=== PATIENT | male | born 1975 | race Caucasian/White ===

== ENCOUNTER 2021-09-08 08:33 | Outpatient (CLI) | payer OTHER, SELFPAY ==
--- NOTE | 2021-09-08 08:15 | DI.RAD_ITS ---
Exam(s) XR KNEE LT 3V AP,LAT,LETICIA EXAM: XR KNEE LT 3V AP,LAT,LETICIA CLINICAL HISTORY: left knee pain. TECHNIQUE: 2D digital imaging was performed of the left knee. Three images were obtained. AP, late ral and PA tunnel views were obtained. COMPARISON: No exams were available for comparison FINDINGS: BONES: No acute fracture is present. No bony destructive lesion is seen. Mild spurring of the well tester ior patella. JOINTS: The knee is normally aligned. No joint effusion is seen. There is a 3 mm osseous density in t he lateral femoral tibial joint space suspicious for loose body. Chondrocalcinosis is present in the femoral tibial joint. SOFT TISSUE: There is a round metallic density within the soft tissues of the anterior medial knee at the level of the distal metaphysis. This may represent a foreign body. Please correlate with the p santi's clinical history. IMPRESSION: 1. Mild degenerative changes of the left knee. 2. Possible loose body in the lateral femoral tibial joint space. 3. Foreign body seen in the anterior medial soft tissues. DATA REPOSITORY: RADIATION DOSE DELIVERED:
== END 2021-09-08 08:34 | disposition home or self-care (01) ==
LOC: DIORS 08:34
PROVIDERS: PCP Internal Medicine; Referring Provider Internal Medicine; Visit Provider Student in an Organized Health Care Education/Training Program
DX: M25.562 Pain in left knee (principal); M79.5 Residual foreign body in soft tissue; M23.42 Loose body in knee, left knee
CPT/HCPCS: 73562

== ENCOUNTER 2021-09-25 00:45 | Outpatient (CLI) | payer OTHER, SELFPAY ==
--- NOTE | 2021-09-25 06:30 | DI.MRI_ITS ---
Exam(s) MR LOWER JOINT LT WO EXAM: MR LOWER JOINT LT WO CLINICAL HISTORY: ? MENISCAL TEAR,internal derangement lt knee, lt knee pain, m25.562,m23.92. TECHNIQUE: Multiplanar multisequence MRI was performed. COMPARISON: CR KNEE_4 OR MORE VIEWS -LEFT from 06/24/2012 MR MR EXTREMITY KNEE WO CONTRAST from 07/10/2012 CR XR KNEE LT 3V AP,LAT,LETICIA from 09/08/2021 FINDINGS: BONES: There is no fracture or contusion pattern. JOINTS: Articular cartilage is unremarkable. No effusion is present. Patellofemoral joint obscured by artifact. TENDONS: Extensor mechanism: Unremarkable. Medial retinaculum: Unremarkable. Lateral retinaculum: Unremarkable. Popliteus: Unremarkable. MUSCLES: Unremarkable. MENISCI: The medial meniscus is unremarkable. The posterior horn and body of the lateral meniscus are not seen in no loose usual location. Appear s to be a portion of the meniscus flipped medially near the anterior cruciate ligament. There is abn ormal linear and amorphous signal in the anterior horn. SOFT TISSUES: Artifact related to BB in the soft tissues medial to the left medial femoral condyle. Small Witt's cyst. This appears decreased in size when compared the previous exam. LIGAMENTS: Anterior Cruciate: Unremarkable. Posterior Cruciate: Unremarkable. Medial Collateral:Unremarkable. Lateral Collateral: Unremarkable. OTHER: Significant artifact related to BB in the medial soft tissues. IMPRESSION: Lateral meniscal tear with the majority of the body and posterior horn flipped medially. DATA REPOSITORY:
== END 2021-09-25 01:05 ==
PROVIDERS: PCP Internal Medicine; Visit Provider Student in an Organized Health Care Education/Training Program
DX: M25.562 Pain in left knee (principal); M23.8X2 Other internal derangements of left knee; M71.22 Synovial cyst of popliteal space [Baker], left knee; S83.282A Other tear of lateral meniscus, current injury, left knee, initial encounter; X58.XXXA Exposure to other specified factors, initial encounter
CPT/HCPCS: 73721

== ENCOUNTER 2021-10-02 04:04 | Outpatient (CLI) | payer OTHER, SELFPAY ==
[2021-10-02 12:49] LABS: Source Nasal/Nares
[2021-10-02 16:04] LABS: COVID-19 PCR Negative (Negative)
== END 2021-10-02 04:05 | disposition home or self-care (01) ==
LOC: LBO 04:04
PROVIDERS: PCP Internal Medicine; Visit Provider Student in an Organized Health Care Education/Training Program
DX: Z20.822 Contact with and (suspected) exposure to COVID-19 (principal); Z01.818 Encounter for other preprocedural examination
CPT/HCPCS: 87635

== ENCOUNTER 2021-10-03 13:20 | Day surgery (SDC) | payer OTHER, SELFPAY ==
[2021-10-03] VITALS (7 sets, daily range): BP systolic 105–164; BP diastolic 57–110; PULSE 58–67; RESP 10–16; TEMP 36.2–36.4; O2SAT 97–99; BMI 30.9
--- NOTE | 2021-10-03 13:21 | W.ANESPRE ---
General Info Date of Service Date Performed: 10/03/21 Height: 5 ft 10 in Weight: 97.976 kg Body Mass Index (BMI): 30.9 Surgical Procedure: Operation Date: 10/03/21 16:10 Proposed Procedure Side Surgeon p Knee Arthroscopy w/Partial Lateral Menisectomy Left Marky Ann MD Meds Allergies and Home Medications Allergies Allergy/AdvReac Type Severity Reaction Status Date / Time Penicillins Allergy Unknown Verified 10/03/21 13:49 Home Medication Medication Instructions Recorded lisinopril 30 mg tablet 30 mg PO DAILY 07/18/21 Current Visit Medications: Current Medications Generic Name Dose Route Start Last Admin Trade Name Freq PRN Reason Stop Dose Admin Acetaminophen 1,000 mg 10/03/21 06:00 Acetaminophen 500 Mg Tab PO 10/03/21 16:00 PREOP DANIEL Celecoxib 400 mg 10/03/21 06:00 Celecoxib 200 Mg Cap PO 10/03/21 16:00 PREOP DANIEL Ringer's Solution 1,000 mls @ 80 mls/hr 10/03/21 06:00 IV 10/26/21 23:59 INFUSION DANIEL Cefazolin Sodium/Dextrose 2 gm in 50 mls @ 100 mls/hr 10/03/21 06:00 Ancef Duplex IVPB 10/03/21 23:59 PREOP DANIEL IV Miscellaneous Supplies 1 each 10/03/21 06:00 Iv Access IV 10/26/21 23:59 DIRECTED DANIEL Sodium Chloride 0 ml 10/03/21 06:00 Normal Saline Flush 10 Ml Syr IV 10/26/21 23:59 PRN PRN Sodium Chloride 0 ml 10/03/21 06:00 Normal Saline 10 Ml Vial IJ 10/26/21 23:59 DIRECTED PRN Sterile Water 0 ml 10/03/21 06:00 Water,Injection,Sterile 10 Ml Vial IJ 10/26/21 23:59 DIRECTED PRN PFSH Active Problems Active Problems: Problem Status Onset Code Essential hypertension I10 Hyperlipemia E78.5 Left knee pain M25.562 Internal derangement of left knee M23.92 Bucket handle tear of lateral meniscus of left knee S83.252A Medical History Medical History (Updated 10/03/21 @ 13:48 by Leslie Crawford) COVID-19 08/22/21-nasal congestion History of postoperative nausea and vomiting Surgical History Surgical History History of vasectomy History of wisdom tooth extraction Tobacco Smoking/Tobacco Use Status: Never Alcohol Alcohol Intake: current Alcohol intake frequency: a few times a week Alcohol type: beer Substance Use Substance use: Rarely Substance use type: marijuana Vital Signs and Lab Results Lab Results Blood Type / Crossmatch: No Data to Display Complete Blood Count: No Data to Display Complete Metabolic Panel: No Data to Display Liver Function Panel: No Data to Display Coagulation Panel: No Data to Display Cardiac Panel: No Data to Display Arterial Blood Gas: No Data to Display Venous Blood Gas: No Data to Display Pancreas Panel: No Data to Display Thyroid Panel: No Data to Display Infectious Disease: Coronavirus (COVID-19)(PCR) Negative (Negative) 10/02/21 09:36 10/02/21 Coronavirus 2019 Source Nasal/Nares 10/02/21 09:36 10/02/21 Blood Cultures: No Data to Display Toxicology Panel: No Data to Display Anesthesia Assessment and Plan Anesthesia History Personal History: PONV Family History: No Family History of Anesthesia Complications Exercise Tolerance Exercise Tolerance: Metabolic Equivalents>4 Pertinent Negatives Pertinent Negatives: No Symptoms of GERD, No Major Cardiovascular Symptoms or Complaints, No Major Pulmonary Symptoms or Complaints and No History of CVA/TIA Cardiac & Pulmonary Exam Cardiac Exam: Normal S1/S2 Heart Sounds Pulmonary Exam: Clear Bilateral Breath Sounds Implantable Cardiac Device Does patient have a Pacemaker or an ICD?: No Airway Exam Known Difficult Airway: No Mallampati Class: 3 Mouth Opening: Normal (> 3cm) Thyromental Distance: Greater than 3 cm Facial Hair: Full [place] Neck Range of Motion: Full ROM Neck Circumference: Normal Teeth Condition: Normal Dentition ASA Classification ASA Score: ASA 2 Emergency Case?: No NPO Status NPO Status: NPO Clears >2 hours, Solids >8 hours Anesthesia Plan Resuscitation Status: Full Code Anesthesia Technique: General Anesthesia Airway Planned: LMA Monitors Used: Standard Monitors
[2021-10-03] MEDS: Acetaminophen 500 MG TAB 1000 MG PO (14:08)
[2021-10-03] MEDS: Celecoxib 200 MG CAP 400 MG PO (14:08)
[2021-10-03] MEDS: Lactated Ringers 1,000 ML 80 ML IV (14:35)
[2021-10-03] MEDS: ceFAZolin 2 GM/50 ML BAG IVPB (14:49)
[2021-10-03] MEDS: Bupivacaine 0.5% Pres-Free 30 ML VIAL (15:46)
--- NOTE | 2021-10-03 16:21 | W.ANESPOSTOP ---
Postoperative Evaluation Date, Time and Location Date Performed: 10/03/21 Time Performed: 16:16 Patient Location: PACU Vital Signs Most Recent Imported Vital Signs: Most Recent Vital Signs Temp Pulse Resp BP Pulse Ox 36.4 C L 64 14 125/88 97 10/03/21 16:19 10/03/21 16:19 10/03/21 16:19 10/03/21 16:19 10/03/21 16:19 Pain Score Most Recent Pain Score: Most Recent Pain Score Pain Level 3 10/03/21 16:19 Assessment Mental Status: Arousable with meaningful communication Airway and Respiratory Function: Patent airway with normal (patient baseline) respiratory exam Cardiovascular Function: Hemodynamically Stable Hydration Status: Adequately Hydrated Nausea & Vomiting: No Nausea or Vomiting Pain: Pain is tolerable per patient Peripheral Nerve Block: Patient did not receive a nerve block
--- NOTE | 2021-10-03 16:35 | W.PM.OP ---
Date of service: 10/03/21 Time of Service: 15:40 Operative Note Operative Note DATE OF PROCEDURE: 10/03/21 PRE-OP DIAGNOSIS: Left Knee Lateral Meniscus Tear POST-OP DIAGNOSIS: same Left Knee Medial Femoral Chondral Flap PROCEDURE: Left Knee Partial Lateral Menisectomy, Medial Femoral Chondroplasty SURGEON: Marky Ann Refer to Anesthesia Record ESTIMATED BLOOD LOSS: 0 PATHOLOGY: none sent COMPLICATIONS: None Patient was transported to: PACU Patient's condition: stable Indications: I have seen Yoni in clinic for symptoms of a meniscus tear. This was confirmed based on MRI and exam findings. Nonoperative measures were exhausted but disability and pain persisted. I discussed knee arthroscopy with meniscal intervention with the patient. I reviewed the risks of the procedure to include, but not limited to, bleeding, infection, pain, stiffness, damage to nerves or vessels, recurrence, blood clot. Despite these risks, the patient elected to proceed. 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 The consent was reviewed with the patient and signed. The history and physical was updated. All questions were answered. He was taken back to the operating room. The patient was placed into the supine position on the operating room table. All bony prominences were well padded. Prophylactic antibiotics in the form of cefazolin were administered. The left leg was then prepped with Chloraprep and draped in a standard fashion with stockinette and extremity drape. A timeout to confirm correct identity, side and site, procedure, allergies, anesthesia, and medical concerns was performed. The leg was placed into a pneumatic leg quiroz, [id number]. A standard lateral portal was made at the lateral border of the patella tendon in line with the inferior pole of the patella, soft spot. The skin and deep tissue was incised sharply and the blunt trochar was inserted atraumatically. A diagnostic arthroscopy was performed and the findings are listed above. The suprapatellar pouch had no significant inflammatory change. The patellofemoral articulation showed no articular damage as well as good tracking. The lateral gutter had no loose bodies and the medial gutter had no loose bodies. The knee was brought into some valgus stress in extension to open the medial compartment. A medial portal was made, localized by a spinal needle. The portal was created with an #11 blade through skin and capsule under direct visualization avoiding any meniscal injury. A probe was then inserted into the medial compartment. The medial compartment was fully inspected. The chondral surface of the tibia showed no significant chondromalacia and the surface of the femur showed some areas of grade II chondromalacia over the weightbearing portion of the femur. This was inspected with a probe and showed to have a loose flap, only approximately 1 mm thick. The medial meniscus had no meniscal tear, however, there was a denser white section of the meniscus around the region of the body and the posterior horn. This was probed and did not show any signs of residual tearing although it seemed to have represented a potentially old tear. Cartilage surfaces were debrided of any flaps, leaving any intact fibers. The notch was then inspected which showed an intact ACL and an intact PCL although with some inflammatory changes around this The leg was then brought into a figure of 4 position. The lateral compartment was fully inspected with the arthroscope and a probe. Immediate visualization of the joint surface was limited due to a large meniscal tissue. This was reduced with a probe. The chondral surface of the lateral femur showed grade I chondromalacia. The chondral surface of the lateral tibia showed grade II chondromalacia. The lateral meniscus had a large displaced bucket-handle meniscal tear. The origin of the tear was the posterior root and the anterior horn. There was some fraying of this tissue and the donor site appeared to be more chronic in nature. Use a series of biters and electrocautery to remove the bucket-handle section. The meniscus was debrided down to a stable base using a series of biters and arthroscopic ciro, contouring the edges. There is only a small portion of meniscus remaining at the posterior root. From the anterior horn to the anterior root the meniscus was intact. The meniscus was probed afterwards to confirm that the tear had been removed and the meniscus was stable. The arthroscope was brought back into the suprapatellar pouch and the leg was in full extension. The knee was thoroughly irrigated with the arthroscopic fluid on high flow and pressure. Inflow was stopped and excess fluid was removed. The wounds were closed with 4-0 Nylon. They were dressed with Xeroform, 4x4 gauze, ABD pad, Kerlix and an GIRMA wrap. A cryo-cuff was applied. The patient tolerated the procedure well and was returned to the Same Day Surgery area in a stable condition suffering no known complication.
== END 2021-10-03 17:50 | disposition home or self-care (01) ==
PROVIDERS: PCP Internal Medicine; Visit Provider Student in an Organized Health Care Education/Training Program
PROC: (CPT 29870; principal; 2021-10-03 16:00)
DX: S83.252A Bucket-handle tear of lateral meniscus, current injury, left knee, initial encounter (principal); M94.262 Chondromalacia, left knee; W19.XXXA Unspecified fall, initial encounter; I10 Essential (primary) hypertension; E78.5 Hyperlipidemia, unspecified
CPT/HCPCS: 29881; J0690; J1100; J2250; J2405

== ENCOUNTER 2023-11-15 08:30 | Outpatient (REF) | payer OTHER, SELFPAY ==
[2023-11-15 18:39] LABS: Hemoglobin A1C 5.4 % (<5.7)
[2023-11-15 18:42] LABS: ALT 79 U/L (16-63); AST 39 U/L (15-37); Albumin 4.2 g/dL (3.4-5.0); Alkaline Phosphatase 74 U/L (46-116); Anion Gap 7.7 mmol/L (3-11); BUN 17 mg/dL (7-18); Bilirubin, Total 0.7 mg/dL (0.2-1.0); CO2 28.3 mmol/L (21.0-32.0); CREATININE 1.2 mg/dL (0.70-1.30); Calcium 8.9 mg/dL (8.5-10.1); Calculated LDL 176 mg/dL (<100); Chloride 103 mmol/L (98-107); Cholesterol 238 mg/dL (<200); Estimated GFR 73.67 (mL/min/1.73m2); Glucose 98 mg/dL (74-106); HDL Cholesterol 41 mg/dL (40-60); Potassium 4.2 mmol/L (3.5-5.1); Sodium 139 mmol/L (136-145); Total Protein 7.4 g/dL (6.4-8.2); Triglyceride 107 mg/dL (<150)
== END 2023-11-15 08:31 | disposition home or self-care (01) ==
LOC: NCHCN 08:30
PROVIDERS: PCP Internal Medicine; Visit Provider Physician Assistant
DX: I10 Essential (primary) hypertension (principal); Z13.1 Encounter for screening for diabetes mellitus; Z82.49 Family history of ischemic heart disease and other diseases of the circulatory system
CPT/HCPCS: 80053; 80061; 83036

== ENCOUNTER 2023-11-29 14:57 | Outpatient (REF) | payer OTHER, SELFPAY ==
[2023-11-29 19:32] LABS: Iron 124 ug/dL (65-175); Total Iron Binding Capacity 282 ug/dL (250-450); Transferrin Sat 44 % (20-55)
[2023-11-29 19:45] LABS: Ferritin 479 ng/mL (26-388)
[2023-12-02 09:52] LABS: HBs Antibody, Quant 99.7 mIU/mL (See Note); Hepatitis B Surface Ab Positive (See Note)
[2023-12-02 09:54] LABS: Hepatitis B Surface Ag Negative (Negative)
[2023-12-02 10:35] LABS: Hepatitis C Ab w Rflx HCV PCR Negative (Negative)
== END 2023-11-29 14:58 | disposition home or self-care (01) ==
LOC: NCHCN 14:57
PROVIDERS: PCP Internal Medicine; Visit Provider Physician Assistant
DX: K76.89 Other specified diseases of liver (principal)
CPT/HCPCS: 86706; 86803; 87340; 82728; 83540; 83550

== ENCOUNTER 2023-12-04 17:51 | Outpatient (REF) | payer OTHER, SELFPAY ==
[2023-12-09 16:11] LABS: Result Summary NEGATIVE; Specimen WB Whole Blood
== END 2023-12-04 17:52 | disposition home or self-care (01) ==
LOC: NCHCN 17:51
PROVIDERS: PCP Internal Medicine; Visit Provider Physician Assistant
DX: R77.8 Other specified abnormalities of plasma proteins (principal)
CPT/HCPCS: 81256

== ENCOUNTER 2024-09-28 12:25 | Outpatient (REF) | payer OTHER, SELFPAY ==
[2024-09-28 18:53] LABS: Abs Immature Grans 0.05 10^3/uL (0.0-0.06); Absolute Basophil Count 0.07 10^3/uL (0.0-0.2); Absolute Eosinophil Count 0.08 10^3/uL (0.0-0.7); Absolute Lymphocyte Count 1.35 10^3/uL (1.2-3.4); Absolute Monocyte Count 1.02 10^3/uL (0.1-0.8); Absolute Neutrophil Count 9.38 10^3/uL (1.2-6.7); Basophils % 0.6 %; Eosinophils % 0.7 %; HCT 49.4 % (40.0-50.0); HGB 16.8 g/dL (13.5-17.5); Immature Grans % 0.4 %; Lymphocytes % 11.3 %; MCH 32.9 pg (27.0-33.0); MCV 97 fL (80-95); MPV 10.6 fL (8.0-11.0); Monocytes % 8.5 %; Neutrophils % 78.5 %; Platelet Count 223 10^3/uL (130-400); RBC 5.11 10^6/uL (4.36-5.78); RDW 11.6 % (11.8-14.1); RDW-SD 41.6 fL; WBC 11.95 10^3/uL (4.4-10.8)
[2024-09-30 10:20] LABS: Lyme Ab w Rflx to Lyme Confirm Negative (Negative)
[2024-10-02 00:41] LABS: Anaplasma phagocytophilum Negative (Negative); B. miyamotoi PCR Negative (Negative); Babesia divergens/MO-1 Negative (Negative); Babesia duncani Negative (Negative); Babesia microti Negative (Negative); Ehrlichia chaffeensis Negative (Negative); Ehrlichia ewingii/canis Negative (Negative); Ehrlichia muris eauclairensis Negative (Negative)
== END 2024-09-28 12:26 | disposition home or self-care (01) ==
LOC: NCHCN 12:25
PROVIDERS: PCP Internal Medicine; Visit Provider Nurse Practitioner Family
DX: R61 Generalized hyperhidrosis (principal)
CPT/HCPCS: 87798; 85025; 86618